=== PATIENT | female | born 1970 | race Caucasian/White ===

== ENCOUNTER → 2017-05-25 | Outpatient (CLI) | payer BC ==
[2017-05-25 15:06] VITALS: BP 123/79; PULSE 69; TEMP 98.4; BMI 37.0
--- NOTE | 2017-05-25 15:44 | P.BASOAP ---
Subjective Principal diagnosis: Morbid obesity Patient on our service. She underwent lap scopic banding in 2003. She is not sure who much volume was in her band. She is been doing quite well. She is maintained approximately 80 pound weight loss. Very rarely has episodes of dysphagia. She is actually feeling that the band is slightly loose and wants to try and adjustment. Objective - Vital Signs Vital signs: Vital Signs Temp 98.4 F 05/25/17 15:03 Pulse 69 05/25/17 15:03 Resp BP 123/79 05/25/17 15:03 Pulse Ox Intake & Output 05/24/17 05/25/17 05/25/17 18:59 06:59 18:59 Weight 101.015 kg - Exam Abdomen: Soft, nontender, nondistended Assessment/Plan (1) Morbid obesity Narrative/Plan: Will plan having a small volume of fluid to the patient's band. Follow-up in the office 2 months. The patient's lap band port was palpated. The site was aseptically prepped. 1% lidocaine was infiltrated into the subcutaneous tissues through a diabetic syringe. The Lozada needle was advanced into the port. Aspiration took place. A total of 2.7 ml of fluid was in the band. A total of 0.3 was added for a total of 3.0 mL. Pressure was held and a sterile dressing was applied. Plan: Date: 05/25/17 Initial Weight: Initial BMI: Current Weight: 101.015 kg Current BMI: 37.0 Type of Surgery: Total Volume in Band: Previous Volume: Volume Removed: Volume Added: Band Size:
== END | disposition home or self-care (01) ==
LOC: BARWHC3 13:57
PROVIDERS: ATTEND Surgery
DX: E66.01 Morbid (severe) obesity due to excess calories (principal); Z68.37 Body mass index [BMI] 37.0-37.9, adult
CPT/HCPCS: 99212

== ENCOUNTER → 2021-01-21 | Outpatient (CLI) | payer SELFPAY ==
[2021-01-21 14:24] VITALS: BP 133/88; PULSE 73; RESP 16; TEMP 98.2; BMI 27.6
--- NOTE | 2021-01-21 16:28 | P.BASOAP ---
Subjective Progress Note Date: 01/21/21 Principal diagnosis: Morbid obesity Patient presents with complaints of reflux. Bad over the last 1 month. No vomiting. She does have some dysphagia with food however. Patient last seen 2016. Band was filled up to 3 mL at that time. Initial band placement 2003. Patient does not have insurance currently. Denies abdominal pain. No fevers. Objective - Vital Signs Vital signs: Vital Signs Temp 98.2 F 01/21/21 14:18 Pulse 73 01/21/21 14:18 Resp 16 01/21/21 14:18 BP 133/88 01/21/21 14:18 Pulse Ox Intake & Output 01/20/21 01/21/21 01/21/21 18:59 06:59 18:59 Weight 75.296 kg - Exam Abdomen: Soft, nontender, nondistended Assessment/Plan (1) Morbid obesity Narrative/Plan: The patient's lap band port was palpated. The site was aseptically prepped. The Lozada needle was advanced into the port. A total of 2 ml of fluid was removed. Pressure was held and a sterile dressing was applied. The patient's band empty very slowly. I suspect there is a kink in the tubing limiting the flow. Discussed options of upper GI however the patient would like to avoid as she does not have insurance coverage. We'll see if removing the 2 mL bleeds to resolution of her symptoms. She will contact me in the next 24-40 hours with an update. If symptoms persist patient will require esophagram and possible band removal/revision. Plan: Date: 01/21/21 Initial Weight: 176.901 kg Initial BMI: 64.9 Current Weight: 75.296 kg Current BMI: 27.6 Type of Surgery: Total Volume in Band: 3.0 Previous Volume: Volume Removed: Volume Added: Band Size:
== END ==
LOC: BARWHC3 13:24
PROVIDERS: ATTEND Surgery
DX: E66.01 Morbid (severe) obesity due to excess calories (principal); Z68.27 Body mass index [BMI] 27.0-27.9, adult; K21.9 Gastro-esophageal reflux disease without esophagitis; Z46.51 Encounter for fitting and adjustment of gastric lap band
CPT/HCPCS: 99212

== ENCOUNTER → 2021-01-22 | Outpatient (CLI) | payer SELFPAY ==
--- NOTE | 2021-01-22 15:33 | FL ---
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 Contrast p asses through the lap band without significant hesitancy. No intraluminal or extramural defects are e vident. IMPRESSION: 1. NORMAL LAP BAND ABOUT SIGNIFICANT HESITANCY OF CONTRAST PASSING THROUGH
== END | disposition home or self-care (01) ==
LOC: RADUSWWP 10:43
PROVIDERS: ATTEND Surgery
DX: R93.3 Abnormal findings on diagnostic imaging of other parts of digestive tract (principal); R13.10 Dysphagia, unspecified
CPT/HCPCS: 74220

== ENCOUNTER → 2022-03-03 | Outpatient (CLI) | payer BC ==
[2022-03-03 13:07] VITALS: BP 133/86; PULSE 71; RESP 13; TEMP 98.1; BMI 31.8
--- NOTE | 2022-03-03 13:28 | P.BASOAP ---
Subjective Progress Note Date: 03/03/22 Principal diagnosis: Morbid obesity Patient returns for follow-up. She was last seen in December. The patient's band was loosened because of bad heartburn at that time. 2 mL was removed. Some difficulty getting the fluid out of her port because of suspected kink in the tubing. Initially she did not want to do an upper GI because she had no insurance. She decided the next day to come in for [facility] upper GI. The study shows no evidence of obstruction or prolapse. Patient's symptoms of heartburn resolved completely after loosing her band. She has gained 25 pounds since that time. She would like fluid added back. Objective - Vital Signs Vital signs: Vital Signs Temp 98.1 F 03/03/22 13:02 Pulse 71 03/03/22 13:02 Resp 13 03/03/22 13:02 BP 133/86 03/03/22 13:02 Pulse Ox Intake & Output 03/02/22 03/03/22 03/03/22 18:59 06:59 18:59 Weight 86.636 kg - Exam Abdomen: Soft, nontender, nondistended Assessment/Plan (1) Morbid obesity Narrative/Plan: Patient would like fluid added back to the band. Upper GI shows no obstruction or prolapse on recent study. The patient's lap band port was palpated. The site was aseptically prepped. The Lozada needle was advanced into the port. A total of 1.5 ml of fluid was added for a total of 2.5 mL. Pressure was held and a sterile dressing was applied. Plan: Date: 03/03/22 Initial Weight: 176.901 kg Initial BMI: 64.9 Current Weight: 86.636 kg Current BMI: 31.8 Type of Surgery: Total Volume in Band: 3.0 Previous Volume: Volume Removed: Volume Added: Band Size:
== END ==
LOC: BARWHC3 12:49
PROVIDERS: ATTEND Surgery
DX: E66.01 Morbid (severe) obesity due to excess calories (principal); Z46.51 Encounter for fitting and adjustment of gastric lap band; Z68.31 Body mass index [BMI] 31.0-31.9, adult
CPT/HCPCS: 99212